=== PATIENT | female | born 1970 | race Caucasian/White ===

== ENCOUNTER 2020-08-19 12:59 | Inpatient (IN) | payer MEDICAID, OTHER ==
[~2020-08-19] VITALS: Ht 165.1 cm; Wt 55.8 kg
[~2020-08-19 12:59] MED LIST: AMOX-424 MT; SULF1TAB48 MT
[2020-08-19 17:10] LABS: BASOPHILS % 0.7 % (0.0-2.0); EOSINOPHILS % 1.5 % (0.0-5.0); HEMATOCRIT. 39.2 % (36.0-48.0); HEMOGLOBIN. 13.2 g/dL (12.0-16.0); LYMPHOCYTES % 20.1 % (20.0-50.0); MEAN CORPUSCULAR HEMOGLOBIN 28.7 pg (28.0-32.0); MEAN CORPUSCULAR VOLUME 84.9 fL (81.0-99.0); MEAN PLATELET VOLUME 6.8 fl (7.4-10.4); MONOCYTES % 6.8 % (2.0-8.0); NEUTROPHILS % 70.9 % (40.0-76.0); PLATELET 508 x1000/uL (130-400); RED BLOOD CELL COUNT 4.61 mill/uL (4.2-5.4); RED CELL DISTRIBUTION WIDTH 15.6 % (11.6-14.6)
[2020-08-19 17:15] LABS: CHLORIDE 104 mEq/L (98-107)
[2020-08-19 17:19] LABS: ETHANOL BLOOD < 10 mg/dL
[2020-08-19 17:23] LABS: VALPROIC ACID < 3.0 ug/mL (50-100)
[2020-08-19 19:39] LABS: CLARITY URINE TURBID (CLEAR); COLOR URINE YELLOW (YELLOW); KETONES URINE NEGATIVE (NEGATIVE); LEUKOCYTE ESTERASE URINE TRACE (NEGATIVE); NITRITE URINE NEGATIVE (NEGATIVE); OCCULT BLOOD URINE NEGATIVE (NEGATIVE); PH URINE 7.5 (4.5-8.0); PROTEIN URINE NEGATIVE (NEGATIVE); SPECIFIC GRAVITY URINE 1.019 (1.005-1.030)
[2020-08-19 20:53] VITALS: BP 127/89
[2020-08-19 20:59] LABS: *BENZODIAZEPINES SCREEN URINE NEGATIVE (NEGATIVE)
[2020-08-19 21:00] LABS: *AMPHETAMINES SCREEN URINE NEGATIVE (NEGATIVE); *COCAINE SCREEN URINE NEGATIVE (NEGATIVE); CANNABINOID URINE SCREEN NEGATIVE (NEGATIVE); METHADONE URINE SCREEN NEGATIVE (NEGATIVE); OPIATES URINE SCREEN NEGATIVE (NEGATIVE); PHENCYCLIDINE URINE SCREEN NEGATIVE (NEGATIVE)
[2020-08-19 21:01] LABS: *BARBITURATES SCREEN URINE NEGATIVE (NEGATIVE)
[2020-08-19 22:00] VITALS: BP 126/78
[2020-08-20] VITALS (22 sets, daily range): BP systolic 107–155; BP diastolic 66–89
[2020-08-20] MEDS ORDERED: ACETAMINOPHEN 650MG/20.3ML UDC PO PRN (01:00)
[2020-08-20] MEDS ORDERED: ONDANSETRON HCL 4MG/2ML INJ IV PRN (01:00)
[2020-08-20] MEDS ORDERED: MORPHINE SULFATE 2 MG/ML CPJ (NOT FOR IM USE) IV PRN (01:00)
[2020-08-20] MEDS: PHENYTOIN 100 MG/4 ML UDC NG SCH ×3 (05:10→21:17)
[2020-08-20 06:47] LABS: EOSINOPHILS % 1.9 % (0.0-5.0); HEMATOCRIT. 36.5 % (36.0-48.0); HEMOGLOBIN. 12.5 g/dL (12.0-16.0); LYMPHOCYTES % 26.8 % (20.0-50.0); MEAN CORPUSCULAR HEMOGLOBIN 28.9 pg (28.0-32.0); MEAN CORPUSCULAR VOLUME 84.5 fL (81.0-99.0); MONOCYTES % 9.1 % (2.0-8.0); NEUTROPHILS % 61.2 % (40.0-76.0); PLATELET 508 x1000/uL (130-400); RED BLOOD CELL COUNT 4.32 mill/uL (4.2-5.4); RED CELL DISTRIBUTION WIDTH 15.9 % (11.6-14.6)
[2020-08-20 07:09] LABS: CHLORIDE 105 mEq/L (98-107)
[2020-08-20 08:15] LABS: INR 1.1; PROTHROMBIN TIME 11.1 sec (9.6-11.0)
[2020-08-20] MEDS: DEXT 5%/LACTATED RINGERS 1,000 ML IV SCH ×2 (08:38→23:22)
[2020-08-20] MEDS: LEVETIRACETAM 500MG/5ML CUP PO SCH ×2 (08:38→21:16)
[2020-08-20] MEDS ORDERED: POTASSIUM CHLORIDE 20MEQ TABLET SR PO NR (11:15)
[2020-08-20] MEDS ORDERED: POTASSIUM CHLORIDE 20MEQ/PACKET PO NR (12:30)
[2020-08-21] VITALS (54 sets, daily range): BP systolic 60–184; BP diastolic 34–146
[2020-08-21] MEDS: PHENYTOIN 100 MG/4 ML UDC NG SCH ×3 (05:53→21:27)
[2020-08-21 06:20] LABS: BASOPHILS % 0.6 % (0.0-2.0); EOSINOPHILS % 2.9 % (0.0-5.0); HEMATOCRIT. 33.3 % (36.0-48.0); HEMOGLOBIN. 11.5 g/dL (12.0-16.0); LYMPHOCYTES % 20.4 % (20.0-50.0); MEAN CORPUSCULAR HEMOGLOBIN 29.3 pg (28.0-32.0); MEAN CORPUSCULAR VOLUME 84.7 fL (81.0-99.0); MEAN PLATELET VOLUME 6.8 fl (7.4-10.4); MONOCYTES % 8.6 % (2.0-8.0); NEUTROPHILS % 67.5 % (40.0-76.0); PLATELET 456 x1000/uL (130-400); RED BLOOD CELL COUNT 3.94 mill/uL (4.2-5.4); RED CELL DISTRIBUTION WIDTH 15.1 % (11.6-14.6)
[2020-08-21 06:38] LABS: CHLORIDE 108 mEq/L (98-107)
[2020-08-21] MEDS ORDERED: BACITRACIN 15GM TUBE TOP ONE (07:33)
[2020-08-21] MEDS ORDERED: THROMBIN (BOVINE) 5000 UNITS/VIAL TOP ONE (07:33)
[2020-08-21] MEDS ORDERED: LIDOCAINE HCL/EPINEPHRINE 1%-EPI 1:100,000 20 ML VIAL ONE (07:33)
[2020-08-21] MEDS ORDERED: BACITRACIN 50,000 UNITS/VIAL ONE (07:34)
[2020-08-21] MEDS: LEVETIRACETAM 500MG/5ML CUP PO SCH ×2 (08:19→20:27)
[2020-08-21] MEDS ORDERED: INFLUENZA VACCINE 05/PF 0.5 ML VIAL IM ONE (10:00)
[2020-08-21] MEDS ORDERED: PROPOFOL 200MG/20ML VIAL IV ONE (11:18)
[2020-08-21] MEDS ORDERED: ROCURONIUM BROMIDE 10MG/ML VIAL 5ML IV ONE (11:18)
[2020-08-21] MEDS ORDERED: MIDAZOLAM HCL 2 MG/2 ML VIAL ONE (11:18)
[2020-08-21] MEDS ORDERED: GLYCOPYRROLATE 0.2 MG/ML 2ML VIAL ONE (11:18)
[2020-08-21] MEDS ORDERED: NEOSTIGMINE METHYLSULFATE 1MG/ML 10 ML VIAL ONE (11:18)
[2020-08-21] MEDS ORDERED: FENTANYL CITRATE/PF 50MCG/ML 2ML VIAL ONE ×2 (11:18→12:02)
[2020-08-21] MEDS ORDERED: SUCCINYLCHOLINE CHLORIDE 200MG/10ML IV ONE (11:19)
[2020-08-21] MEDS ORDERED: CEFAZOLIN SODIUM 1000MG/VIAL ONE (11:19)
[2020-08-21] MEDS ORDERED: DEXAMETHASONE 4MG/ML 1ML VIAL ONE (11:19)
[2020-08-21] MEDS ORDERED: SODIUM CHLORIDE 0.9% 10ML VIAL ONE (11:19)
[2020-08-21] MEDS ORDERED: ONDANSETRON HCL 4MG/2ML INJ ONE (11:19)
[2020-08-21] MEDS ORDERED: METOCLOPRAMIDE HCL 10MG/2ML VIAL ONE (11:19)
[2020-08-21] MEDS ORDERED: NICARDIPINE 100 MG in SODIUM CHLORIDE 0.9% 60 ML IV PRN (13:15)
[2020-08-21] MEDS ORDERED: POTASSIUM CHLORIDE INJ 40 MEQ in DEXT 5% WATER 250 ML IV SCH (14:00)
[2020-08-21] MEDS ORDERED: CEFAZOLIN SODIUM 1000MG/VIAL IV SCH (14:00)
[2020-08-21] MEDS: DEXT 5%/LACTATED RINGERS 1,000 ML IV SCH (14:20)
[2020-08-21] MEDS: MORPHINE SULFATE 2 MG/ML CPJ (NOT FOR IM USE) IV PRN ×3 (15:33→23:59)
[2020-08-21] MEDS ORDERED: *PATIENT'S OWN MEDICATION STORAGE XX SCH (18:30)
[2020-08-21] MEDS: CEFAZOLIN 1000MG PREMIX 50 ML IV SCH (20:27)
[2020-08-21] MEDS: DIPHENHYDRAMINE 12.5MG/5ML UDC PO PRN (20:28)
[2020-08-21] MEDS: VIMPAT 150 MG PO SCH (21:27)
[2020-08-22] VITALS (61 sets, daily range): BP systolic 103–142; BP diastolic 59–89
[2020-08-22] MEDS: CEFAZOLIN 1000MG PREMIX 50 ML IV SCH ×3 (04:10→21:36)
[2020-08-22] MEDS: MORPHINE SULFATE 2 MG/ML CPJ (NOT FOR IM USE) IV PRN ×2 (04:15→12:20)
[2020-08-22] MEDS: PHENYTOIN 100 MG/4 ML UDC NG SCH ×3 (05:58→21:40)
[2020-08-22] MEDS: DEXT 5%/LACTATED RINGERS 1,000 ML IV SCH (05:59)
[2020-08-22 06:26] LABS: BASOPHILS % 0.6 % (0.0-2.0); EOSINOPHILS % 1.5 % (0.0-5.0); HEMATOCRIT. 36.1 % (36.0-48.0); LYMPHOCYTES % 10.4 % (20.0-50.0); MEAN CORPUSCULAR HEMOGLOBIN 28.8 pg (28.0-32.0); MEAN CORPUSCULAR VOLUME 86.4 fL (81.0-99.0); MEAN PLATELET VOLUME 7.4 fl (7.4-10.4); MONOCYTES % 7.1 % (2.0-8.0); NEUTROPHILS % 80.4 % (40.0-76.0); PLATELET 471 x1000/uL (130-400); RED BLOOD CELL COUNT 4.18 mill/uL (4.2-5.4); RED CELL DISTRIBUTION WIDTH 15.6 % (11.6-14.6)
[2020-08-22] MEDS: LEVETIRACETAM 500MG/5ML CUP PO SCH ×2 (08:46→21:36)
[2020-08-22 09:42] LABS: CHLORIDE 108 mEq/L (98-107)
[2020-08-22] MEDS: VIMPAT 150 MG PO SCH ×2 (10:05→21:00)
[2020-08-23] VITALS: BP 90/51
[2020-08-23] MEDS: CEFAZOLIN 1000MG PREMIX 50 ML IV SCH (03:19)
[2020-08-23] MEDS: DEXT 5%/LACTATED RINGERS 1,000 ML IV SCH (03:19)
[2020-08-23 04:00] VITALS: BP 101/55
[2020-08-23] MEDS: PHENYTOIN 100 MG/4 ML UDC NG SCH ×3 (06:15→22:12)
[2020-08-23 07:37] LABS: BASOPHILS % 0.8 % (0.0-2.0); EOSINOPHILS % 6.4 % (0.0-5.0); HEMATOCRIT. 32.7 % (36.0-48.0); HEMOGLOBIN. 11.1 g/dL (12.0-16.0); LYMPHOCYTES % 16.3 % (20.0-50.0); MEAN CORPUSCULAR HEMOGLOBIN 28.6 pg (28.0-32.0); MEAN CORPUSCULAR VOLUME 84.2 fL (81.0-99.0); MEAN PLATELET VOLUME 7.1 fl (7.4-10.4); MONOCYTES % 8.4 % (2.0-8.0); NEUTROPHILS % 68.1 % (40.0-76.0); PLATELET 519 x1000/uL (130-400); RED BLOOD CELL COUNT 3.88 mill/uL (4.2-5.4); RED CELL DISTRIBUTION WIDTH 15.4 % (11.6-14.6)
[2020-08-23 07:43] LABS: CHLORIDE 107 mEq/L (98-107)
[2020-08-23 07:49] LABS: PHOSPHORUS 2.7 mg/dL (2.5-4.9)
[2020-08-23 08:00] VITALS: BP 141/79
[2020-08-23] MEDS ORDERED: POTASSIUM CHLORIDE 20MEQ/PACKET PEG NR (08:30)
[2020-08-23] MEDS: LEVETIRACETAM 500MG/5ML CUP PO SCH ×2 (10:52→22:11)
[2020-08-23] MEDS: VIMPAT 150 MG PO SCH ×2 (10:52→21:00)
[2020-08-23 12:00] VITALS: BP 99/52
[2020-08-23 16:00] VITALS: BP 111/64
[2020-08-23 20:00] VITALS: BP 124/80
[2020-08-23] MEDS: DIPHENHYDRAMINE 12.5MG/5ML UDC PO PRN (22:11)
[2020-08-24] VITALS: BP 110/77
[2020-08-24 08:00] VITALS: BP 135/78
[2020-08-24] MEDS: VIMPAT 150 MG PO SCH ×2 (09:00→15:13)
[2020-08-24] MEDS: PHENYTOIN 100 MG/4 ML UDC NG SCH ×2 (09:26→15:13)
[2020-08-24] MEDS: LEVETIRACETAM 500MG/5ML CUP PO SCH (09:26)
[2020-08-24] MEDS: DEXT 5%/LACTATED RINGERS 1,000 ML IV SCH (09:38)
[2020-08-24 12:00] VITALS: BP 119/74
[2020-08-24 12:03] LABS: BASOPHILS % 0.9 % (0.0-2.0); EOSINOPHILS % 2.4 % (0.0-5.0); HEMATOCRIT. 31.7 % (36.0-48.0); HEMOGLOBIN. 10.8 g/dL (12.0-16.0); LYMPHOCYTES % 15.8 % (20.0-50.0); MEAN CORPUSCULAR HEMOGLOBIN 28.9 pg (28.0-32.0); MEAN CORPUSCULAR VOLUME 85.2 fL (81.0-99.0); MEAN PLATELET VOLUME 7.3 fl (7.4-10.4); NEUTROPHILS % 73.9 % (40.0-76.0); PLATELET 478 x1000/uL (130-400); RED BLOOD CELL COUNT 3.73 mill/uL (4.2-5.4); RED CELL DISTRIBUTION WIDTH 15.4 % (11.6-14.6)
[2020-08-24 12:06] LABS: CHLORIDE 108 mEq/L (98-107)
[2020-08-24 15:56] LABS: CLARITY URINE CLOUDY (CLEAR); COLOR URINE DARK YELLOW (YELLOW); KETONES URINE NEGATIVE (NEGATIVE); LEUKOCYTE ESTERASE URINE 3+ (NEGATIVE); NITRITE URINE NEGATIVE (NEGATIVE); OCCULT BLOOD URINE TRACE (NEGATIVE); PH URINE 6.5 (4.5-8.0); PROTEIN URINE 1+ (NEGATIVE)
[2020-08-24 16:00] VITALS: BP 118/72
[2020-08-24] MEDS ORDERED: POTASSIUM CHLORIDE 20MEQ/PACKET PEG ONE (16:30)
[2020-08-24 17:35] VITALS: BP 118/72
[2020-08-24 20:00] VITALS: BP 141/79
== END 2020-08-24 19:40 | disposition home or self-care (01) | DRG 22 ==
LOC: ER 13:29 → 5EST 18:56 → ENRESERV 19:56 → 5EST 08-20 03:18 → MICUNO 08-21 13:57 → 6EST 08-22 15:40
PROVIDERS: ADMIT Internal Medicine; ATTEND Internal Medicine
PROC: 00160J6 Bypass Cerebral Ventricle to Peritoneal Cavity with Synthetic Substitute, Open Approach (ICD-10-PCS; principal; 2020-08-21)
PROC: 0D20XUZ Change Feeding Device in Upper Intestinal Tract, External Approach (ICD-10-PCS; 2020-08-21)
DX: G91.8 Other hydrocephalus (principal); G93.89 Other specified disorders of brain; E44.0 Moderate protein-calorie malnutrition; E87.6 Hypokalemia; D64.9 Anemia, unspecified; G93.2 Benign intracranial hypertension; R64 Cachexia; G40.A09 Absence epileptic syndrome, not intractable, without status epilepticus; L89.154 Pressure ulcer of sacral region, stage 4; L89.219 Pressure ulcer of right hip, unspecified stage; Z20.828 Contact with and (suspected) exposure to other viral communicable diseases; I69.391 Dysphagia following cerebral infarction; Z74.01 Bed confinement status; Z93.1 Gastrostomy status; Z68.20 Body mass index [BMI] 20.0-20.9, adult; N39.0 Urinary tract infection, site not specified
CPT/HCPCS: 36415; 71045; 80048; 80053; 80165; 80185; 80305; 80320; 81003; 82542; 83735; 84100; 85025; 85651; 87070; 87075; 87077; 87186; 87426; 90686; 93005; 99285; A6261; C1725; C1750; J0330; J0690; J1100; J2250; J2270; J2405; J2704; J2710; J2765; J3010; J3480; J3490; J7040; J7060; J7120; J7121; Q0163; A4315; G0480